=== PATIENT | male | born 1955 | race African-American/Black ===

== ENCOUNTER 2016-08-19 02:07 | Emergency (ER) | payer SELFPAY ==
[2016-08-19 02:50] LABS: BASOPHILS 0.3 % (0.0-2.0); HEMATOCRIT 33.2 % (42.0-54.0); HEMOGLOBIN 10.5 g/dL (13.5-17.5); IMMATURE GRANULOCYTES 0.1 % (0-5); LYMPHOCYTES 18.6 % (15-50); MCH 27.8 pg (26.0-34.0); MCHC 31.6 g/dL (31.0-37.0); MCV 87.8 fL (80.0-100.0); MEAN PLATELET VOLUME 8.9 fL (7.4-10.4); MONOCYTES 9.6 % (2-11); NEUTROPHILS 68.4 % (40-80); PLATELET COUNT 326 10x3/uL (130-400); RBC 3.78 10x6/uL (4.20-6.10); RDW 17.8 % (11.5-14.5); WBC 7.4 10x3/uL (4.8-10.8)
[2016-08-19 03:03] LABS: ALBUMIN 3.2 g/dL (3.4-5.0); ANION GAP 17.6 mmol/L (8-16); BILIRUBIN - TOTAL 1.36 mg/dL (0.2-1.3); CALCIUM 8.8 mg/dL (8.5-10.1); CARBON DIOXIDE 20.3 mmol/L (21.0-32.0); CREATININE - SERUM 2.4 mg/dL (0.6-1.3); POTASSIUM - SERUM 3.9 mmol/L (3.5-5.1); PROTEIN - SERUM 8.4 g/dL (6.4-8.2)
== END 2016-08-19 04:10 | disposition home or self-care (01) ==
LOC: EDBD 02:07 → D.ER 02:07
PROVIDERS: Emergency Medicine
DX: G90.522 Complex regional pain syndrome I of left lower limb (principal); I10 Essential (primary) hypertension; J44.1 Chronic obstructive pulmonary disease with (acute) exacerbation; N18.9 Chronic kidney disease, unspecified; Z91.14 Patient's other noncompliance with medication regimen; I50.9 Heart failure, unspecified